=== PATIENT | female | born 1975 | race American Indian/Alaskan Native ===

== ENCOUNTER 2022-04-02 18:20 | Emergency (ER) | payer MEDICARE ==
--- NOTE | 2022-04-03 01:27 | Emergency Department Report ---
HPI - General Chief Complaint: Hyperglycemia Time Seen by Provider: 04/03/22 01:08 - [facility] HPI: Room 21 The patient is a 46-year-old female presenting with a chief complaint of hyperglycemia. The patient states she stopped taking her insulin for approxi mate 1 month because she was getting bruising at her injection sites on her abdomen. Patient saw her primary physician 2 days ago and had blood drawn. The patient was called yesterday informed that her blood sugar was in the 800s and that she should continue her insulin. The patient was given a prescription for insulin but states she is not able to get it filled until today. The patient states she took her insulin but her blood sugar remained in the 500s. The patient states she contacted her physician who in turn turned her to come to the emergency department. The patient states for 1 week she has had a cough occasionally productive of sputum, chest congestion and sneezing. Patient st ates she is not vaccinated against COVID ED Past Medical Hx - Past Medical History Hx Hypertension: No (Taken off of meds) Hx Diabetes: Yes Hx Psychiatric Treatment: Yes (Bipolar disorder) Additional medical history: Hypercholesterolemia - Surgical History Additional Surgical History: D&C - Family History Family history: no significant - Social History Smoking Status: Never Smoker Substance Use Type: None (Denies illicit drug use), Alcohol (Rarely) - Medications Home Medications: Home Medications Medication Instructions Recorded Confirmed Last Taken Type AtorvaSTATin [Lipitor] 20 mg PO QHS 04/03/22 04/03/22 Unknown History Benztropine [Cogentin] 0.5 mg PO BID 04/03/22 04/03/22 Unknown History Divalproex ER [DepaKOTE ER] 1,000 mg PO QDAY 04/03/22 04/03/22 Unknown History Glimepiride [Amaryl] 2 mg PO BID 04/03/22 04/03/22 Unknown History busPIRone [Buspar] 5 mg PO BID 04/03/22 04/03/22 Unknown History guaiFENesin 400 mg PO Q6H PRN #20 04/03/22 Unknown Rx haloperidoL [Haloperidol] 10 mg PO BID 04/03/22 04/03/22 Unknown History ED Review of Systems ROS: Stated complaint: BLOOD SUGAR HIGH 593 Other details as noted in HPI Constitutional: fever (?) Eyes: denies: eye pain ENT: congestion Respiratory: cough Cardiovascular: denies: chest pain Endocrine: no symptoms reported Gastrointestinal: denies: abdominal pain Genitourinary: denies: dysuria Musculoskeletal: denies: back pain Neurological: denies: headache Physical Exam - Physical Exam Vital Signs: Vital Signs 04/02/22 04/03/22 19:01 00:51 Temperature 98.7 F 98.2 F Pulse Rate 116 H 97 H Respiratory 18 19 Rate Blood Pressure 123/88 149/102 [Right] O2 Sat by Pulse 98 100 Oximetry Physical Exam: GENERAL: The patient is well-developed well-nourished female lying on stretcher not appearing to be in acute distress. [] HEENT: Normocephalic. Atraumatic. Extraocular motions are intact. Patient has moist mucous membranes. NECK: Supple. Trachea midline CHEST/LUNGS: Clear to auscultation. There is no respiratory distress noted. HEART/CARDIOVASCULAR: Regular. There is no tachycardia. There is no gallop rub or murmur. ABDOMEN: Abdomen is soft, nontender. Patient has normal bowel sounds. There is no abdominal distention. SKIN: There is no rash. There is no diaphoresis. NEURO: The patient is awake, alert, and oriented. The patient is cooperative. The patient has no focal neurologic deficits. The patient has normal speech. GCS 15 MUSCULOSKELETAL: There is no evidence of acute injury. ED Course Vital Signs 04/02/22 04/03/22 19:01 00:51 Temperature 98.7 F 98.2 F Pulse Rate 116 H 97 H Respiratory 18 19 Rate Blood Pressure 123/88 149/102 [Right] O2 Sat by Pulse 98 100 Oximetry - Reevaluation(s) Reevaluation #1: 04/03/22 03:13 Accu-Chek 259 ED Medical Decision Making - Lab Data Result diagrams: 04/03/22 01:18 04/03/22 01:18 - Radiology Data Radiology results: report reviewed (Chest x-ray), image reviewed (Chest x-ray) interpreted by me: Chest x-ray-no definite focal infiltrates, no pneumothorax [facility] [address] [place] [address] XRa y Report Signed Patient: ILANA CELAYA MR#: [id number] : 1975 Acct:[id number] Age/Sex: 46 / F ADM Date: 04/02/22 Loc: ED Attending Dr: Ordering Physician: CESAR MALAGON MD Date of Service: 04/03/22 Procedure(s): XR chest 1V ap Accession Number(s): [id number] cc: CESAR MALAGON MD Fluoro Time In Minutes: XR chest 1V ap INDICATION / CLINICAL INFORMATION: Cough. COMPARISON: None available. FINDINGS: SUPPORT DEVICES: None. HEART /PULMONARY VASCULATURE: No significant abnormality. LUNGS / PLEURA: No significant pulmonary or pleural abnormality. No pneumothorax. ADDITIONAL FINDINGS: No significant additional findings. IMPRESSION: 1. No acute findings. Signer Name: Halima Infante MD Signed: 04/03/2022 1:51 AM Workstation Name: [id number] Transcribed By: VANDANA Dictated By: HALIMA INFANTE MD Electronically Authenticated By: HALIMA INFANTE MD Signed Date/Time: 04/03/22150 DD/ 9 TD/TT: - Differential Diagnosis Hyperglycemia, DKA, bronchitis, pneumonia Critical care attestation.: If time is entered above; I have spent that time in minutes in the direct care of this critically ill patient, excluding procedure time. ED Disposition Clinical Impression: Hyperglycemia, Cough Disposition: 01 HOME / SELF CARE / HOMELESS Is pt being admited?: No Does the pt Need Aspirin: No Condition: Stable Instructions: Cough, Adult, Hyperglycemia, [id number] Additional Instructions: Return to the emergency department should you develop worsening symptoms, inability to tolerate food or liquids, high fever or any other concerns Prescriptions: guaiFENesin 400 mg PO Q6H PRN #20 PRN Reason: Cough Referrals: PRIMARY CARE, [Referring] - 3-5 Days Time of Disposition: 03:17
[2022-04-03 01:28] LABS: Bilirubin,Urine NEG (Negative); Blood,Urine NEG (Negative); Color,Urine Straw (Yellow); Protein,Urine <15 mg/dL mg/dL (Negative); RBC,Urine < 1.0 /HPF (0.0-6.0); Urobilinogen,Urine < 2.0 mg/dL (<2.0)
[2022-04-03] MEDS: SODIUM CHLORIDE 0.9% 1000 ML 1,000 ML IV ONE (01:30)
[2022-04-03 01:42] LABS: Basophils % (Auto) 0.3 % (0.0-1.8); Eosinophils % (Auto) 0.6 % (0.0-4.3); Hematocrit 40.3 % (30.3-42.9); Hemoglobin 12.9 gm/dl (10.1-14.3); Lymphocytes # (Auto) 1.9 K/mm3 (1.2-5.4); Lymphocytes % (Auto) 43.4 % (13.4-35.0); Mean Corpuscular HGB Conc 32 % (30-34); Mean Corpuscular Volume 83 fl (79-97); Monocytes # (Auto) 0.5 K/mm3 (0.0-0.8); Monocytes % (Auto) 10.3 % (0.0-7.3); Platelet Count 213 K/mm3 (140-440); Red Blood Count 4.83 M/mm3 (3.65-5.03); Red Cell Distribution Width 14.5 % (13.2-15.2)
[2022-04-03 01:46] LABS: WBC,Urine < 1.0 /HPF (0.0-6.0)
[2022-04-03 01:51] LABS: Calcium 9.6 mg/dL (8.4-10.2)
--- NOTE | 2022-04-03 01:55 | XRay Report ---
XR chest 1V ap INDICATION / CLINICAL INFORMATION: Cough. COMPARISON: None available. FINDINGS: SUPPORT DEVICES: None. HEART /PULMONARY VASCULATURE: No significant abnormality. LUNGS / PLEURA: No significant pulmonary or pleural abnormality. No pneumothorax. ADDITIONAL FINDINGS: No significant additional findings. IMPRESSION: 1. No acute findings. Signer Name: Timur Morejon MD Signed: 04/03/2022 1:51 AM Workstation Name: [id number]
[2022-04-03] MEDS: INSULIN REGULAR, HUMAN 100 UNITS/1 ML IV ONE (02:15)
[2022-04-03 03:37] VITALS: BP 112/72
== END 2022-04-03 03:25 | disposition home or self-care (01) ==
LOC: ED 18:20
DX: E11.65 Type 2 diabetes mellitus with hyperglycemia (principal); R50.9 Fever, unspecified; F31.9 Bipolar disorder, unspecified
CPT/HCPCS: 36415; 71045; 80048; 80164; 81001; 82805; 82962; 85025; 96361; 96374; 99284; J7030; Q9967; J1815